=== PATIENT | male | born 1940 | race Caucasian/White ===

== ENCOUNTER 2019-02-08 09:42 | Outpatient (CLI) | payer OTHER ==
[2014-12-04 10:41] VITALS: BMI 24.7
--- NOTE | 2019-02-08 10:36 | CT ---
EXAM: CT of the abdomen pelvis without contrast History: Abdominal pain. Comparison: None available. Technique: Multiplanar CT images through the abdomen pelvis were obtained without the administration of IV contrast Findings: Subsegmental atelectasis seen within the lower lungs. No acute osseous abnormalities. No gallstones identified by CT. No focal liver or splenic lesions. No renal stones and no hydroneph rosis. Severe atherosclerotic vascular disease. No peripancreatic inflammation. Adrenal glands are unremarkable. No ureteral calculi. Bladder is not well distended. No focal bladder wall thickenin g. Prostate is not enlarged. No perirectal inflammation. Colonic diverticulosis. No free air and no ascites. The appendix is not seen. There are no secondary signs of appendicitis. Scoliosis and degenerative changes of the spine. Impression: 1. No acute intra-abdominal or pelvic process. 2. No renal or ureteral stones and no hydronephrosis. 3. Colonic diverticulosis. 4. Severe atherosclerotic vascular disease
== END 2019-02-08 09:43 | disposition home or self-care (01) ==
LOC: RAD 09:42
PROVIDERS: ATTEND Family Medicine
DX: R10.12 Left upper quadrant pain (principal); K59.00 Constipation, unspecified
CPT/HCPCS: 74176

== ENCOUNTER 2019-05-28 09:08 | Day surgery (SDC) | payer OTHER ==
[2014-12-04 10:41] VITALS: BMI 24.7
[2019-05-28 09:45] VITALS: TEMP 97
[2019-05-28] MEDS ORDERED: LIDOCAINE 1% 20 ML MDV ID STA (09:47)
[2019-05-28] MEDS ORDERED: LIDOCAINE 1% 20 ML MDV ID ONE (10:04)
[2019-05-28] MEDS ORDERED: DIPRIVAN 20 ML VIAL IVP ONE (10:15)
[2019-05-28 13:59] VITALS: BP 166/57
--- NOTE | 2019-05-29 11:39 | OP ---
PROCEDURE: COLONOSCOPY TO CECUM. ENDOSCOPIST: Rodrick GALLO M.D. INDICATION: CHANGE IN BOWEL HABITS. INSTRUMENT: PC-190. MEDICATION: PER ANESTHESIA. PROCEDURE: The patient was positioned for colonoscopy. The digital rectal exam was negative. The colonoscope was inserted through the anus and advanced to the cecum. The cecum was identified using the ileocecal valve and the appendiceal orifice as landmarks. The scope was slowly withdrawn through an adequately prepped colon. [place] Bowel Prep Score 2+2+2=6. Diverticulosis though out the left colon. Scattered stool through out the colon which we irrigated and suctioned to allow exam. The retroflex exam was otherwise negative with exception of small hemorrhoids. He tolerated the procedure without immediate complication. Withdraw 8 minutes and 54 seconds. PLAN: 1. Repeat exam in 5 years CC: Dr. Olga Lidia SALGUERO
== END 2019-05-28 11:30 | disposition home or self-care (01) ==
LOC: SURG 09:08
PROVIDERS: ATTEND Internal Medicine Gastroenterology
DX: R19.4 Change in bowel habit (principal); K57.90 Diverticulosis of intestine, part unspecified, without perforation or abscess without bleeding